=== PATIENT | female | born 1975 | race African-American/Black ===

== ENCOUNTER 2023-07-18 01:32 | Inpatient (IN) | payer MEDICAID, OTHER ==
[~2023-07-18] VITALS: Ht 170.2 cm; Wt 79.4 kg
[2023-07-18 03:50] LABS: BASOPHILS % 1.1 % (0.0-2.0); LYMPHOCYTES % 40.2 % (20.0-50.0); MEAN CORPUSCULAR HEMOGLOBIN 18.4 pg (28.0-32.0); MEAN CORPUSCULAR HGB CONC 28.1 g/dL (31.0-37.0); MEAN CORPUSCULAR VOLUME 65.4 fL (81.0-99.0); MEAN PLATELET VOLUME 8.1 fl (7.4-10.4); MONOCYTES % 9.7 % (2.0-8.0); PLATELET 241 x1000/uL (130-400); RED BLOOD CELL COUNT 2.22 mill/uL (4.2-5.4); RED CELL DISTRIBUTION WIDTH 20.4 % (11.6-14.6); WHITE BLOOD COUNT 3.2 x1000/uL (4.5-11.0)
[2023-07-18 04:01] LABS: PROTHROMBIN TIME 11.4 sec (9.6-11.0)
[2023-07-18] MEDS: ACETAMINOPHEN 1000MG/100ML 100 ML IV ONE (04:04)
[2023-07-18 04:12] LABS: CHLORIDE 114 mEq/L (98-107); POTASSIUM 3.9 mEq/L (3.5-5.1); SODIUM 139 mEq/L (136-145)
[2023-07-18 04:13] LABS: CARBON DIOXIDE 19 mEq/L (21-32)
[2023-07-18 04:18] LABS: CREATININE 1.3 mg/dL (0.6-1.0); GLUCOSE 97 mg/dL (70-105)
[2023-07-18 04:19] LABS: UREA NITROGEN BLOOD 12 mg/dL (9-23)
[2023-07-18 04:22] LABS: HCG SCREEN NEGATIVE
[2023-07-18 04:26] LABS: ETHANOL BLOOD < 10 mg/dL (<10)
[2023-07-18 04:27] LABS: DIFFERENTIAL COMMENT 1
[2023-07-18 04:28] LABS: ADD RBC MORPHOLOGY YES
[2023-07-18 04:30] LABS: HEMATOCRIT. 14.5 % (36.0-48.0); HEMOGLOBIN. 4.1 g/dL (12.0-16.0)
[2023-07-18 04:31] LABS: MICROCYTOSIS 2+; PLATELET ESTIMATE NORMAL
[2023-07-18 04:32] LABS: GIANT PLATELETS FEW; OVALOCYTES 1+; TEAR DROP CELLS 2+
[2023-07-18 04:34] LABS: HYPOCHROMASIA 3+
[2023-07-18] MEDS ORDERED: ACETAMINOPHEN 325MG TABLET PO PRN (11:00)
[2023-07-18] MEDS: HYDROCODONE/ACETAMINOPHEN 5/325MG TABLET PO NR (18:19)
[2023-07-18 18:20] VITALS: BP 144/75; PULSE 80; RESP 18; TEMP 98.8
[2023-07-18 20:00] VITALS: BP 114/53; PULSE 75; RESP 20; TEMP 97.4
[2023-07-18 22:07] LABS: HEMATOCRIT 17.5 % (36.0-48.0); HEMOGLOBIN 5.1 g/dL (12.0-16.0)
[2023-07-18] MEDS: HYDROCODONE/ACETAMINOPHEN 10/325MG TABLET PO PRN (22:57)
[2023-07-19] VITALS (15 sets, daily range): BP systolic 105–151; BP diastolic 56–81; PULSE 20–89; RESP 16–20; TEMP 96.6–98.1
[2023-07-19 10:48] LABS: HEMATOCRIT 21.3 % (36.0-48.0); HEMOGLOBIN 6.3 g/dL (12.0-16.0)
[2023-07-19 16:06] LABS: CLARITY URINE TURBID (CLEAR); COLOR URINE RED (YELLOW)
[2023-07-19 16:26] LABS: *AMPHETAMINES SCREEN URINE NEGATIVE (NEGATIVE); *BARBITURATES SCREEN URINE NEGATIVE (NEGATIVE); *BENZODIAZEPINES SCREEN URINE NEGATIVE (NEGATIVE); *COCAINE SCREEN URINE NEGATIVE (NEGATIVE)
[2023-07-19 16:27] LABS: CANNABINOID URINE SCREEN NEGATIVE (NEGATIVE); ECSTASY MDMA SCREEN URINE NEGATIVE (NEGATIVE); METHADONE URINE SCREEN NEGATIVE (NEGATIVE); OPIATES URINE SCREEN PRESUMPTIVE POSITIVE (NEGATIVE); PHENCYCLIDINE URINE SCREEN NEGATIVE (NEGATIVE)
[2023-07-19 17:35] LABS: GLUCOSE URINE NEGATIVE (NEGATIVE); KETONES URINE NEGATIVE (NEGATIVE); NITRITE URINE NEGATIVE (NEGATIVE); OCCULT BLOOD URINE 3+ (NEGATIVE); PH URINE 5.5 (4.5-8.0); PROTEIN URINE 1+ (NEGATIVE); SPECIFIC GRAVITY URINE 1.015 (1.005-1.030)
[2023-07-19 17:36] LABS: LEUKOCYTE ESTERASE URINE NEGATIVE (NEGATIVE); UROBILINOGEN URINE 0.2 E.U./dL (0.2-1.0)
[2023-07-19 17:39] LABS: BACTERIA URINE TRACE; RBC URINE TNTC /hpf (0-2); SQUAMOUS EPITHELIAL CELL URINE FEW /lpf (RARE/1+)
[2023-07-19] MEDS: FUROSEMIDE 20MG/2ML VIAL IVP NR (18:28)
[2023-07-19 18:31] LABS: HEMATOCRIT 23.9 % (36.0-48.0); HEMOGLOBIN 7.3 g/dL (12.0-16.0)
[2023-07-19] MEDS: KETOROLAC 30MG/ML VIAL IV PRN (19:30)
[2023-07-20] VITALS: BP 156/82; PULSE 61; RESP 18; TEMP 97.3
[2023-07-20 04:00] VITALS: BP 146/72; PULSE 75; RESP 18; TEMP 97.6
[2023-07-20 07:02] LABS: BASOPHILS % 1.3 % (0.0-2.0); EOSINOPHILS % 6.6 % (0.0-5.0); HEMATOCRIT. 24.1 % (36.0-48.0); HEMOGLOBIN. 7.6 g/dL (12.0-16.0); LYMPHOCYTES % 26.1 % (20.0-50.0); MEAN CORPUSCULAR HEMOGLOBIN 22.5 pg (28.0-32.0); MEAN CORPUSCULAR HGB CONC 31.7 g/dL (31.0-37.0); MEAN CORPUSCULAR VOLUME 71.1 fL (81.0-99.0); MEAN PLATELET VOLUME 8.5 fl (7.4-10.4); MONOCYTES % 10.6 % (2.0-8.0); NEUTROPHILS % 55.4 % (40.0-76.0); PLATELET 265 x1000/uL (130-400); RED BLOOD CELL COUNT 3.39 mill/uL (4.2-5.4); RED CELL DISTRIBUTION WIDTH 26.2 % (11.6-14.6); WHITE BLOOD COUNT 4.4 x1000/uL (4.5-11.0)
[2023-07-20 07:49] LABS: DIFFERENTIAL COMMENT 1
[2023-07-20 07:52] LABS: ADD RBC MORPHOLOGY YES
[2023-07-20 08:00] VITALS: BP 158/93; PULSE 80; RESP 18; TEMP 97.5
[2023-07-20 08:37] VITALS: RESP 18
[2023-07-20 11:23] VITALS: BP 158/93; PULSE 80; TEMP 97.8; O2SAT 98
[2023-07-20] MEDS ORDERED: FURO-152 MT (11:57)
[2023-07-21 01:17] LABS: PLATELET ESTIMATE NORMAL
[2023-07-21 01:18] LABS: HYPOCHROMASIA 1+; OVALOCYTES 1+; TEAR DROP CELLS 2+
== END 2023-07-20 17:11 | DRG 663 ==
LOC: ER 01:32 → 5WST 05:37 → EDBEDREQ 05:47 → EDBEDREQTM 05:47 → 8WST 16:36
PROVIDERS: ADMIT Internal Medicine; ATTEND Internal Medicine
PROC: 30233N1 Transfusion of Nonautologous Red Blood Cells into Peripheral Vein, Percutaneous Approach (ICD-10-PCS; principal; 2023-07-18)
DX: D62 Acute posthemorrhagic anemia (principal); I50.31 Acute diastolic (congestive) heart failure; D25.9 Leiomyoma of uterus, unspecified; D72.819 Decreased white blood cell count, unspecified; N92.0 Excessive and frequent menstruation with regular cycle
CPT/HCPCS: 36415; 80048; 80305; 80320; 81003; 83605; 84703; 85014; 85018; 85025; 86850; 86900; 86920; 93306; 99291; C1893; J1885; J1940; P9016; G0480; J0131

== ENCOUNTER 2024-09-18 15:27 | Emergency (ER) | payer MEDICAID, OTHER ==
[~2024-09-18] VITALS: Ht 170.2 cm; Wt 70.0 kg
[~2024-09-18 15:27] MED LIST: FURO-152 MT
[2024-09-18 15:35] VITALS: TEMP 36.9; O2SAT 99
[2024-09-18] MEDS: ACETAMINOPHEN 325MG TABLET PO ONE (16:13)
[2024-09-18] MEDS: KETOROLAC 15MG/ML VIAL IM ONE (16:13)
[2024-09-18] MEDS ORDERED: CYCL5TAB3 MT (17:22)
[2024-09-18 17:45] VITALS: BP 150/92; PULSE 73; RESP 18; O2SAT 100
== END 2024-09-18 17:45 | disposition home or self-care (01) ==
LOC: ER 15:27
DX: M62.838 Other muscle spasm (principal); V43.52XA Car driver injured in collision with other type car in traffic accident, initial encounter; Y93.89 Activity, other specified; Y92.89 Other specified places as the place of occurrence of the external cause; Y99.8 Other external cause status
CPT/HCPCS: 99285; 70450; 72125; 96372; J1885